=== PATIENT | female | born 2000 | race Caucasian/White ===

== ENCOUNTER → 2020-08-11 14:12 | Outpatient (CLI) | payer OTHER, SELFPAY ==
--- NOTE | ~2020-08-11 | XR_ITS ---
EXAMINATION: XR foot RT min 3V EXAM DATE: 08/11/2020 14:51 INDICATION: S99.921A -pain and swelling to rt lateral foot. Fracture. Initial encounter. TECHNIQUE: Right foot dorsoplantar, lateral and oblique projections obtained and reviewed. There is no prior study for comparison. FINDINGS: Acute closed posttraumatic fracture through the base of the right 5th metatarsal bone, avu lsion type injury. There is about a 2 mm gap between the fracture fragments. There is overlying soft tissue swelling. No other suspicious findings. IMPRESSION: Acute right 5th metatarsal base avulsion fracture. Reviewed, dictated and finalized at location B. [employer]
== END ==
PROVIDERS: PCP Family Medicine; Visit Provider Family Medicine
DX: S92.351A Displaced fracture of fifth metatarsal bone, right foot, initial encounter for closed fracture (principal); X58.XXXA Exposure to other specified factors, initial encounter
CPT/HCPCS: 73630